=== PATIENT | female | born 1980 | race Two or more races ===

== ENCOUNTER 2021-05-28 12:08 | Emergency (ER) | payer MEDICAID ==
[2021-05-28] MEDS ORDERED: Ketorolac 30 MG/ML SDV IVPUSH ONE (12:48)
[2021-05-28] MEDS ORDERED: Sodium Chloride 0.9% 1,000 ML IV ONE (12:48)
[2021-05-28 13:43] LABS: CARBON DIOXIDE,CO2 29.5 mmol/L (21.0-32.0)
[2021-05-28 14:04] LABS: CORONAVIRUS COVID-19 NAA POSITIVE (NEGATIVE); INFLUENZA A NAA NEGATIVE (NEGATIVE); INFLUENZA B NAA NEGATIVE (NEGATIVE)
[2021-05-28] MEDS ORDERED: Potassium Chloride 20 MEQ Tab.ER PO ONE (14:06)
[2021-05-28 16:11] VITALS: BP 122/81; PULSE 99
[2021-05-28] MEDS ORDERED: Iopamidol 755 Mg/ML 100 ML Bottle IVPUSH ONE (16:31)
== END 2021-05-28 16:12 | disposition home or self-care (01) ==
LOC: MW.ED 12:08
DX: U07.1 COVID-19 (principal); E87.6 Hypokalemia; R91.8 Other nonspecific abnormal finding of lung field
CPT/HCPCS: 0240U; 36415; 71045; 71275; 80053; 81001; 85025; 96374; 99284; A9270; J1885; J7030; Q9967